=== PATIENT | female | born 1960 | race Caucasian/White ===

== ENCOUNTER → 2017-12-22 | Emergency (ER) | payer OTHER ==
[~2017-12-22] VITALS: Ht 157.5 cm; Wt 59.0 kg
[~2017-12-22] MED LIST: ADULT LOW DOSE81 M1; ANUSOL-HC30 G2 RC; GILTUSS COUGH-118 ML PO; LIPIODOL10 ML; MIRALAX510 GM PO; NAPROXEN500 MG; PEPCID20 MG; SULINDAC200 MG; ZOCOR5 MG
== END | disposition home or self-care (01) ==
LOC: ER 09:41
DX: M94.0 Chondrocostal junction syndrome [Tietze] (principal); M62.838 Other muscle spasm

== ENCOUNTER 2023-03-31 08:46 | Emergency (ER) | payer OTHER ==
[~2023-03-31] VITALS: Ht 157.5 cm; Wt 55.3 kg
[~2023-03-31 08:46] MED LIST changes: +KEFLEX500 MG PO; +KETO10TA2 PO
[2023-03-31] MEDS ORDERED: LIPITOR40 M1 (09:04)
[2023-03-31] MEDS ORDERED: COZAAR25 MG (09:05)
== END 2023-03-31 14:51 | disposition home or self-care (01) ==
LOC: ER 08:46
DX: R42 Dizziness and giddiness (principal); G43.801 Other migraine, not intractable, with status migrainosus; G44.89 Other headache syndrome; I10 Essential (primary) hypertension

== ENCOUNTER 2024-10-30 15:00 | Emergency (ER) | payer OTHER ==
[~2024-10-30] VITALS: Ht 154.9 cm; Wt 56.2 kg
[~2024-10-30 15:00] MED LIST changes: +COZAAR25 MG; +LIPITOR40 M1
[2024-10-30] MEDS ORDERED: BUTALB/ACETAMINOPHEN/CAFFEINE 1 TAB TABLET PO ONE (17:00)
[2024-10-30 17:17] LABS: HEMATOCRIT 39.8 % (36.0-45.00); HEMOGLOBIN 13.6 g/dL (12.0-15.00); MEAN CELL VOLUME 91.9 fL (80.00-100.00); MEAN CORPUSCULAR HEMOGLOBIN 31.5 pg (27.00-32.0); MEAN CORPUSCULAR HGB CONC 34.3 g/dl (32.0-36.0); PLATELET COUNT 164 K/uL (150-450); RED BLOOD COUNT 4.33 M/uL (4.00-6.00); RED CELL DISTRIBUTION WIDTH 13.4 % (11.5-14.5)
[2024-10-30 18:18] LABS: PH,URINE 7.5 (5.0-8.0); URINE APPEARANCE Clear; URINE BILIRRUBIN Negative (NEGATIVE); URINE BLOOD Negative; URINE COLOR Yellow; URINE GLUCOSE Negative (NEGATIVE); URINE KETONE 15 (NEGATIVE); URINE LEUKOCYTE Small; URINE NITRATE Negative; URINE PROTEIN Trace (NEGATIVE)
[2024-10-30 18:22] LABS: URINE BACTERIA 933.7 uL (0.0-1933); URINE EPITHELIAL CELLS 39.5 uL (0.0-38.8); URINE WBC 16.1 uL (0.0-23.2)
[2024-10-30 18:47] LABS: ALBUMIN 3.6 gm/dL (3.4-5.0); BILIRUBIN TOTAL 0.48 mg/dL (0.3-1.2); CALCIUM 8.7 mg/dL (8.5-10.1); CREATININE SERUM 0.57 mg/dL (0.55-1.02); GFR 107.47; GLOBULINA 3.2 G/DL (2.4-3.5); POTASSIUM 3.84 mEq/L (3.5-5.1); TOTAL PROTEIN 6.8 gm/dL (6.4-8.2)
[2024-10-30 19:00] LABS: URINE CAST 0.14 uL (0.0-1.40)
[2024-10-30 19:01] LABS: URINE CRYSTALS FEW /HPF; URINE MUCUS SCANT
[2024-10-30] MEDS ORDERED: ACETAMINOPHEN WITH CODEINE 1 UDTAB TABLET PO ONE (22:00)
== END 2024-10-30 21:55 | disposition home or self-care (01) ==
LOC: ER 15:03
PROVIDERS: Emergency Medicine
DX: B34.9 Viral infection, unspecified (principal); R10.9 Unspecified abdominal pain; G43.909 Migraine, unspecified, not intractable, without status migrainosus; R42 Dizziness and giddiness; Z20.822 Contact with and (suspected) exposure to COVID-19; I10 Essential (primary) hypertension